=== PATIENT | female | born 1950 | race Caucasian/White ===

== ENCOUNTER 2020-05-06 15:10 | Emergency (ER) | payer OTHER ==
[~2020-05-06] VITALS: Ht 157.5 cm; Wt 64.7 kg
[2020-05-06 15:26] VITALS: BP 167/67
[2020-05-06] MEDS ORDERED: cyclobenzaprine 10mg tablet PO ONE (15:50)
[2020-05-06] MEDS ORDERED: ketorolac tromethamine 15mg/ml inj. IM ONE (15:50)
[2020-05-06] MEDS ORDERED: CYCL-1 PO (16:43)
== END 2020-05-06 17:44 | disposition home or self-care (01) ==
LOC: ER 15:11
DX: S16.1XXA Strain of muscle, fascia and tendon at neck level, initial encounter (principal); M54.6 Pain in thoracic spine; M54.2 Cervicalgia; M54.89 Other dorsalgia; Z88.8 Allergy status to other drugs, medicaments and biological substances; Z79.899 Other long term (current) drug therapy; V87.7XXA Person injured in collision between other specified motor vehicles (traffic), initial encounter; Y93.89 Activity, other specified; Y92.89 Other specified places as the place of occurrence of the external cause; Y99.8 Other external cause status
CPT/HCPCS: 72125; 72128; 96372; 99285; J1885